=== PATIENT | male | born 1950 | race Caucasian/White ===

== ENCOUNTER 2019-10-01 09:11 | Outpatient (CLI) | payer MEDICARE, SELFPAY ==
--- NOTE | ~2019-10-01 | XR_ITS ---
EXAMINATION: XR lumbar spine min 4V DATE: 10/01/2019 09:41 INDICATION: Lumbar spinal stenosis with neurogenic claudication TECHNIQUE: Anteroposterior and lateral in neutral, flexion and extension views of the lumbar spine we re obtained. COMPARISON: MRI dated 08/22/[address] dated 12/29/2018 FINDINGS: Interval discectomy with prosthetic disc device at L4-L5. Posterior spinal fusion with bilateral vert ical rods and pedicle screw fixations at L4-L5 which is also new since the prior study. Unchanged int erspinous process fixation device at L5-S1. 5 mm retrolisthesis L2 on L3 which is unchanged with fle xion and extension. Severe disc height loss at this level with vacuum phenomena and sclerotic Modic t ype III degenerative endplate changes. Chronic mild anterior wedging of T12 and L1. Multiple prominen t anterior osteophytes which appear solidly bridging at T10-L2. IMPRESSION: 1. Severe lumbar spondylosis with 5 mm retrolisthesis L2 on L3 which is unchanged with flexion or ext ension. 2. Stable appearance of prior lumbar postoperative changes including posterior fusion procedure at th e spinous processes of L5-S1 and prosthetic disc and instrumented posterior spinal fusion at L4-L5. Reviewed, dictated and finalized at location A. IMPRESSION: 1. Severe lumbar spondylosis with 5 mm retrolisthesis L2 on L3 which is unchang ed with flexion or extension. 2. Stable appearance of prior lumbar postoperative changes including posterior fusion procedure at the spinous processes of L5-S1 and prosthetic disc and inst rumented posterior spinal fusion at L4-L5.
== END 2019-10-01 09:12 | disposition home or self-care (01) ==
PROVIDERS: PCP Family Medicine
DX: M48.062 Spinal stenosis, lumbar region with neurogenic claudication (principal); M47.816 Spondylosis without myelopathy or radiculopathy, lumbar region; M43.16 Spondylolisthesis, lumbar region; Z98.1 Arthrodesis status
CPT/HCPCS: 72110

== ENCOUNTER 2019-10-26 09:41 | Outpatient (CLI) | payer MEDICARE, SELFPAY ==
--- NOTE | ~2019-10-26 | CT_ITS ---
EXAMINATION: CT lumbar spine wo con DATE: 10/26/2019 10:12 INDICATION: Low back pain. TECHNIQUE: Computed tomography (CT) of the lumbar spine was performed without intravenous contrast. A utomated exposure control and iterative reconstruction technique were employed. The dose-length produ ct was 1028.78 mGy-cm. COMPARISON: Lumbar spine radiographs 10/01/2019, MRI 08/22/2017 FINDINGS: There is 3 degrees dextrocurvature of lumbar spine. There are hypoplastic ribs at L1. There is 5 mm retrolisthesis of L2 on L3. There are changes of anterior and posterior fusion procedures at L4-L5 with interbody device and pedicle screws. There is internal fixation of the spinous processes at L5-S1. There are bridging anterior osteophytes from L1 to at least T11, consistent with diffuse he patic skeletal hyperostosis (DISH). There is severely decreased disc height at L2-L3. The prostate is moderately enlarged. The following disc levels are specifically discussed: L1-L2: The disc does not extend beyond the endplate margin. There is moderate bilateral facet joint o steoarthritis. There is no neural foraminal stenosis. There is no central canal stenosis. L2-L3: The disc is bulging. There is moderate bilateral facet joint osteoarthritis. There is moderate bilateral neural foraminal stenosis. There is moderate central canal stenosis. L3-L4: The disc is bulging. There is severe bilateral facet joint osteoarthritis. There is mild bilat eral neural foraminal stenosis. There is mild central canal stenosis. L4-L5: The disc is bulging. There is severe bilateral facet joint osteoarthritis. There is moderate b ilateral neural foraminal stenosis. There is mild central canal stenosis. L5-S1: There is severe bilateral facet joint osteoarthritis. There is moderate bilateral neural joon inal stenosis. There is moderate central canal stenosis. IMPRESSION: 1. Severe lumbar spondylosis. 2. Anterior fusion procedure at L4-L5 and posterior fusion procedures at L4-L5 and L5-S1. 3. DISH. Reviewed, dictated and finalized at location A.
== END 2019-10-26 09:42 | disposition home or self-care (01) ==
LOC: ANHIMG 09:44
PROVIDERS: PCP Family Medicine; Visit Provider Nurse Practitioner Gerontology
DX: M48.062 Spinal stenosis, lumbar region with neurogenic claudication (principal); M43.16 Spondylolisthesis, lumbar region; M54.41 Lumbago with sciatica, right side; G89.29 Other chronic pain; M54.42 Lumbago with sciatica, left side; Z98.1 Arthrodesis status; M48.16 Ankylosing hyperostosis [Forestier], lumbar region
CPT/HCPCS: 72131

== ENCOUNTER 2021-09-24 00:11 | Day surgery (SDC) | payer MEDICARE, SELFPAY ==
[2021-09-05 12:50] VITALS: BMI 26.2
[2021-09-24 08:16] VITALS: BP 135/87; PULSE 80; RESP 18; TEMP 36.4; O2SAT 99
[2021-09-24] MEDS: LACTATED RINGERS 1,000 ML 150 ML IV CONT (08:27)
--- NOTE | 2021-09-24 09:00 | P.CONGI_ITS ---
Assessment and Plan Assessment and plan (1) Family history of colon cancer in father: Code(s): Z80.0 - Family history of malignant neoplasm of digestive organs Status: Acute Assessment and Plan: Patient's father grandfather had colon cancer. For this reason surveillance colonoscopy at 5 year intervals is advised. Further recommendations will be given after colonoscopy. GI Consult Note Consult date/time: 09/24/21 09:00 HPI: Pino Saunders is a 70 year old male Presents for screening colonoscopy. Patient's current weight appetite and bowel movements are normal. He denies abdominal pain. He has had no bleeding. Family history is significant both father and grandfather have had colon cancer. Most recent colonoscopy for this patient 2016 was unremarkable. Patient presents today for neoplasia screening. Review of Systems Review of Systems: All systems reviewed & are unremarkable except as noted in HPI and below PMFSH Past Medical History Medical History (Updated 09/24/21 @ 09:02 by Bossman Carrera MD) Diverticulitis Hepatitis C antibody test negative (06/25/17) Surgical History Surgical History H/O rotator cuff surgery 4--2006 History of back surgery 2007,2018 History of bilateral carpal tunnel release 2002 Family History Family History Grandparent Hypertension Family history of elevated blood lipids Father Carcinoma of colon Sibling Family history of malignant neoplasm of breast in first degree relative Other Family history of malignant neoplasm of breast Social History Social History Smoking status: Former smoker Tobacco type: cigarettes Smoking end date: 05/18/85 Alcohol intake: current Meds Home Medications and Allergies Home Medications Medication Instructions Recorded Confirmed Type multivitamin 1 tablet PO DAILY 08/28/20 09/24/21 History rosuvastatin 10 mg tablet See Rx Instructions .ROUTE 04/04/21 09/24/21 Rx .COMPLEX #90 tablet diclofenac sodium 75 mg See Rx Instructions .ROUTE 05/02/21 09/24/21 Rx tablet,delayed release .COMPLEX #60 tablet tramadol [Ultram] 50 mg PO Q4-6H 09/05/21 09/24/21 History Allergies Allergy/AdvReac Type Severity Reaction Status Date / Time No Known Allergies Allergy Verified 09/24/21 08:14 Vital Signs Vital Signs - 24 hr 09/24/21 08:16 Temperature 97.5 F L Pulse Rate 80 Respiratory Rate 18 Blood Pressure 135/87 Pulse Oximetry 99 Exam Narrative: Physical exam reveals patient to be alert. Vital signs stable. HEENT exam is unremarkable. Patient is anicteric. Lungs are clear to auscultation and percussion. Heart is without murmur or extra sounds. Abdominal exam bowel sounds are present soft nontender with no organomegaly. Digital external rectal exam is normal.
--- NOTE | 2021-09-24 09:05 | WPDANESEPPF ---
Anes - Initial Pre Proc Eval Procedure: Operation Date: 09/24/21 09:30 Proposed Procedures p Screening Colonoscopy - Bossman Carrera MD Date/Time: 09/24/21 09:05 Surgeon: Bossman Carrera MD Pre Op Diagnosis: family hx of colon ca Patient Data Age: 70 Gender: M Height: 1.7 m Weight: 76.2 kg Last Vital Signs Temp 97.5 F L 09/24/21 08:16 Pulse 80 09/24/21 08:16 Resp 18 09/24/21 08:16 BP 135/87 09/24/21 08:16 Pulse Ox 99 09/24/21 08:16 Allergies Allergy/AdvReac Type Severity Reaction Status Date / Time No Known Allergies Allergy Verified 09/24/21 08:14 Home Medications Medication Instructions Recorded Confirmed Type multivitamin 1 tablet PO DAILY 08/28/20 09/24/21 History rosuvastatin 10 mg tablet See Rx Instructions .ROUTE 04/04/21 09/24/21 Rx .COMPLEX #90 tablet diclofenac sodium 75 mg See Rx Instructions .ROUTE 05/02/21 09/24/21 Rx tablet,delayed release .COMPLEX #60 tablet tramadol [Ultram] 50 mg PO Q4-6H 09/05/21 09/24/21 History Patient hx anesthesia problems: none Family hx anesthesia problems: none Results Review: All pre-operative results and documents have been reviewed as part of the pre-operative evaluation. FOR[facility]LY [facility], LAT[facility] Past Medical History Medical History (Updated 09/24/21 @ 09:02 by Bossman Carrera MD) Diverticulitis Hepatitis C antibody test negative (06/25/17) Surgical History Surgical History H/O rotator cuff surgery - History of back surgery 2007,2018 History of bilateral carpal tunnel release 2002 Family History Family History Grandparent Hypertension Family history of elevated blood lipids Father Carcinoma of colon Sibling Family history of malignant neoplasm of breast in first degree relative Other Family history of malignant neoplasm of breast Social History Social History Smoking status: Former smoker Tobacco type: cigarettes Smoking end date: 05/18/85 Alcohol intake: current Anes - Eval Final PreProcedure Day of Procedure 09/24/21 09:05 Patient weight: normal Heart: regular rate and rhythm Lungs: clear to auscultation Airway: Mallampati scale class II Neurological: alert and oriented Last oral intake: >/= 8 hours ASA classification: II Emergent: no Anesthetic plan: proceed Anesthesia type and monitoring: general GIVS and standard monitoring Results Review: All pre-operative results and documents have been reviewed as part of the pre-operative evaluation. Informed Consent: The patient's anesthetic plan and its attendant risks and benefits were discussed with the patient/family/POA. Questions were solicited and answers provided to the satisfaction of the patient/family/POA.
[2021-09-24] MEDS: SIMETHICONE ORAL SUSPENSION 20 MG/0.3 ML 30 ML BOTTLE 0.6 ML IRRIGATION (09:20)
[2021-09-24 09:29] VITALS: BP 105/66; PULSE 70; RESP 21; O2SAT 100
[2021-09-24 09:39] VITALS: BP 114/72; PULSE 72; RESP 15; O2SAT 100
[2021-09-24 09:49] VITALS: BP 131/82; PULSE 73; RESP 19; O2SAT 100
== END 2021-09-24 09:56 | disposition home or self-care (01) ==
PROVIDERS: PCP Family Medicine; Visit Provider Internal Medicine Gastroenterology
PROC: 0DJD8ZZ Inspection of Lower Intestinal Tract, Via Natural or Artificial Opening Endoscopic (ICD-10-PCS; CPT 45378; principal; 2021-09-24 09:30)
DX: Z12.11 Encounter for screening for malignant neoplasm of colon (principal); Z80.0 Family history of malignant neoplasm of digestive organs; K57.30 Diverticulosis of large intestine without perforation or abscess without bleeding; K64.8 Other hemorrhoids; Z87.891 Personal history of nicotine dependence
CPT/HCPCS: G0105; J2704; J7120

== ENCOUNTER 2023-04-01 06:39 | Outpatient (CLI) | payer MEDICARE, SELFPAY ==
--- NOTE | ~2023-04-01 | CT_ITS ---
CT of the Abdomen and Pelvis: Indication: Abdominal pain Technique: 2.5 mm axial scans were obtained through the abdomen and pelvis following intravenous adm inistration of 100 cc of Omnipaque 350. Dose reduction technique was used on this scan by utilizing a utomated exposure control and iterative reconstruction technique. The dose-length product (DLP) was 4 79.64 mGy-cm. COMPARISON: 12/29/2018 Findings: Scans through the lung bases are unremarkable. Small hepatic cysts are present. The spleen, pancreas, gallbladder, left adrenal gland, and kidneys a re within normal limits. 1.5 cm right adrenal nodule is indeterminate by Hounsfield units, but is sta ble from prior exam. There are atherosclerotic calcifications of the aorta. No lymphadenopathy. No bowel obstruction or bowel wall thickening. There is sigmoid diverticulosis. Images through the pelvis were performed. Urinary bladder unremarkable. Prostate gland is enlarged. N o ascites. Impression: No acute abnormality. 1.5 cm right adrenal nodule, stable since 2018, therefore most consistent with a benign lesion. Enlarged prostate gland. Reviewed, dictated and finalized at location . [employer] Impression: No acute abnormality. 1.5 cm right adrenal nodule, stable since 2018, therefore most consistent with a benign lesion. Enlarged prostate gland.
== END 2023-04-01 06:40 | disposition home or self-care (01) ==
PROVIDERS: PCP Family Medicine; Visit Provider Internal Medicine Gastroenterology
DX: N40.0 Benign prostatic hyperplasia without lower urinary tract symptoms (principal); K57.92 Diverticulitis of intestine, part unspecified, without perforation or abscess without bleeding; E27.9 Disorder of adrenal gland, unspecified
CPT/HCPCS: 74177; Q9967

== ENCOUNTER 2023-04-16 00:50 | Day surgery (SDC) | payer MEDICARE, SELFPAY ==
[2023-03-30 13:25] VITALS: BMI 26.7
--- NOTE | 2023-04-14 12:20 | SUR.PREOP ---
Patient called regarding upcoming procedure. Reviewed preop instructions, appointment times, and procedure prep.
[2023-04-16 06:22] VITALS: BP 143/81; PULSE 87; RESP 18; TEMP 36.3; O2SAT 100; BMI 26.3
[2023-04-16] MEDS: LACTATED RINGERS 1,000 ML 150 ML IV CONT (06:45)
--- NOTE | 2023-04-16 07:24 | WPDANESEPPF ---
Anes - Initial Pre Proc Eval Procedure: Operation Date: 04/16/23 07:30 Proposed Procedures p Esophagogastroduodenoscopy & Colonoscopy - Bossman Carrera MD Date/Time: 04/16/23 07:24 Surgeon: Bossman Carrera MD Pre Op Diagnosis: abdominal pain,nausea,diverticulitis, Patient Data Age: 72 Gender: M Height: 1.7 m Weight: 76.2 kg Last Vital Signs Temp 97.4 F L 04/16/23 06:22 Pulse 87 04/16/23 06:22 Resp 18 04/16/23 06:22 BP 143/81 H 04/16/23 06:22 Pulse Ox 100 04/16/23 06:22 O2 Del Method Room Air 04/16/23 06:22 Allergies Allergy/AdvReac Type Severity Reaction Status Date / Time No Known Allergies Allergy Verified 03/30/23 13:23 Home Medications Medication Instructions Recorded Confirmed Type vitamins A,C,U-zrol-frcokt 4,296 1 cap PO BID 02/03/22 03/30/23 History mcg-226 mg-90 mg capsule (PreserVision AREDS) tramadol 50 mg tablet 50 mg PO Q4-6H PRN pain #30 tabs 10/20/22 03/30/23 Rx diclofenac sodium 75 mg 75 mg PO BID PRN pain #180 tabs 02/06/23 03/30/23 Rx tablet,delayed release gabapentin 300 mg capsule 600 mg PO DAILY 03/25/23 03/30/23 History omeprazole 20 mg capsule,delayed 20 mg PO DAILY #30 caps 03/25/23 03/30/23 Rx release rosuvastatin 10 mg tablet 10 mg PO DAILY #90 tabs 03/30/23 03/30/23 Rx Patient hx anesthesia problems: none Family hx anesthesia problems: none Results Review: All pre-operative results and documents have been reviewed as part of the pre-operative evaluation. FORMERLY [facility] Past Medical History Medical History Cataract, bilateral Diverticulitis Hepatitis C antibody test negative (06/25/17) Surgical History Surgical History H/O rotator cuff surgery 4--2006 History of back surgery 2007,2018, 2020 History of bilateral carpal tunnel release 2002 Family History Family History Grandparent Hypertension Family history of elevated blood lipids Father Carcinoma of colon Sibling Family history of malignant neoplasm of breast in first degree relative Other Family history of malignant neoplasm of breast Social History Social History (Updated 03/27/23 @ 09:32 by Naya Salvador) Smoking packs per day: 1 Smoking cigarettes per day: 20.0 Years smoked: 15 Smoking pack-years: 15.00 Smoking status: Former smoker Tobacco type: cigarettes Smoking end date: 05/18/85 Alcohol intake: current Drinks per week: 2 Substance use: never Substance use type: does not use Lack of Transportation: No Lack of Food: Never True Current Housing: I Have Housing Concerned About Future Housing: No Difficulty Paying Gas/Electric Bills: No Difficulty Paying for Meds: No Currently Unemployed: No Education: Master's Degree or Higher Difficulty w/ Childcare or Family Care: No Living arrangements: other Additional living arrangements comments: with sp Occupation/Education: retired Gender identity (if verbalized by the patient): Male Agree to blood products: Yes Anes - Eval Final PreProcedure Day of Procedure 04/16/23 07:24 Patient weight: normal Heart: regular rate and rhythm Lungs: clear to auscultation Airway: Mallampati scale class II Neurological: alert and oriented Last oral intake: >/= 8 hours ASA classification: II Emergent: no Anesthetic plan: proceed Anesthesia type and monitoring: general GIVS and standard monitoring Results Review: All pre-operative results and documents have been reviewed as part of the pre-operative evaluation. Informed Consent: The patient's anesthetic plan and its attendant risks and benefits were discussed with the patient/family/POA. Questions were solicited and answers provided to the satisfaction of the patient/family/POA.
--- NOTE | 2023-04-16 07:32 | WPDHPUPDATE1 ---
History and Physical Update Update Date/Time: 04/16/23 07:32 History and Physical has been reviewed, including an updated exam of the patient. There are NO changes in the patient's condition. Risks, benefits, and alternatives have been discussed and questions answered. Patient agrees to proceed with procedure.
--- NOTE | 2023-04-16 07:45 | SUR.OPER ---
egd ended at 738and colonoscopy begun at 743
[2023-04-16 07:56] VITALS: BP 102/67; PULSE 69; RESP 22; O2SAT 100
[2023-04-16 08:06] VITALS: BP 110/66; PULSE 70; RESP 16; O2SAT 100
[2023-04-16 08:16] VITALS: BP 138/81; PULSE 75; RESP 18; O2SAT 100
== END 2023-04-16 08:25 | disposition home or self-care (01) ==
PROVIDERS: PCP Family Medicine; Visit Provider Internal Medicine Gastroenterology
PROC: 0DJ08ZZ Inspection of Upper Intestinal Tract, Via Natural or Artificial Opening Endoscopic (ICD-10-PCS; CPT 43235; principal; 2023-04-16 07:30)
DX: K57.30 Diverticulosis of large intestine without perforation or abscess without bleeding (principal); K64.8 Other hemorrhoids; Z98.890 Other specified postprocedural states; Z87.891 Personal history of nicotine dependence; Z80.0 Family history of malignant neoplasm of digestive organs; Z80.3 Family history of malignant neoplasm of breast
CPT/HCPCS: 43239; 45378; 87081; J2704; J7120

== ENCOUNTER 2023-05-04 13:34 | Emergency (ER) | payer MEDICARE, SELFPAY ==
[2023-05-04 14:10] VITALS: BP 135/82; PULSE 87; RESP 18; TEMP 36.3; O2SAT 98
--- NOTE | 2023-05-04 16:48 | PC.NURSE ---
Pt to intake desk and states that they will be going somewhere else because there were tired of waiting. This RN told her that he should be going back soon. They did not want to wait. Pt ambulated to the exit with a steady gait
== END 2023-05-04 16:51 | disposition left against medical advice (07) ==
LOC: ANHED 16:46
PROVIDERS: PCP Family Medicine
DX: Z53.21 Procedure and treatment not carried out due to patient leaving prior to being seen by health care provider (principal)
CPT/HCPCS: 99199

== ENCOUNTER → 2023-05-05 11:12 | Outpatient (CLI) | payer MEDICARE, SELFPAY ==
--- NOTE | ~2023-05-05 | CT_ITS ---
EXAMINATION: CT brain wo con DATE: 05/05/2023 11:23 INDICATION: Persistent headaches post fall with head injury 6 days prior TECHNIQUE: Computed tomography (CT) of the head was performed without intravenous contrast. Sagittal and coronal reconstructions were performed. The mA was adjusted according to patient size. Iterative reconstruction technique was employed. The dose-length product was 645.69 mGy-cm. COMPARISON: None FINDINGS: No fracture. Acute intracranial hemorrhage, acute infarction or abnormal extra axial fluid collection . There is mild scattered white matter hypoattenuation consistent with chronic small vessel ischemic disease. Symmetric prominence of the sulci consistent with mild age-appropriate diffuse cerebral volu me loss. Ventricles are normal and symmetric. No mass/mass effect. Changes of bilateral intraocular l ens replacement. The orbits and mastoid air cells are normal. Mild mucosal thickening and small mucou s retention cyst in the bilateral maxillary sinuses. Intracranial calcified cerebral atherosclerosis is noted. IMPRESSION: 1. No fracture or acute intracranial process. 2. Age-related changes including mild diffuse volume loss and mild scattered white matter hypoattenua tion consistent with chronic small vessel ischemic disease. Reviewed, dictated and finalized at location A. [employer] MACHINE OPERATOR IMPRESSION: 1. No fracture or acute intracranial process. 2. Age-related changes including mild diffuse volume loss and mild scattered wh ite matter hypoattenuation consistent with chronic small vessel ischemic diseas e.
== END ==
PROVIDERS: PCP Family Medicine; Visit Provider Family Medicine
DX: R51.9 Headache, unspecified (principal); S09.93XA Unspecified injury of face, initial encounter
CPT/HCPCS: 70450

== ENCOUNTER 2025-01-02 12:03 | Outpatient (CLI) | payer MEDICARE, SELFPAY ==
--- NOTE | ~2025-01-02 | XR_ITS ---
EXAM/ PROCEDURE: XR knee RT min 4V - 01/02/2025 12:20 CDT HISTORY: 74 years old Male with M25.561 - Pain in right knee, pain x 2 weeks COMPARISON: None available TECHNIQUE: Three view(s) FINDINGS/ IMPRESSION: There are no fractures or dislocations.Joint space narrowing, subchondral sclerosis, subchondral cyst formation and osteophyte formation, compatible with mild osteoarthritis. Reviewed, dictated and finalized at location A.
== END 2025-01-02 12:04 | disposition home or self-care (01) ==
PROVIDERS: PCP Family Medicine; Visit Provider Family Medicine
DX: M25.561 Pain in right knee (principal); M25.461 Effusion, right knee
CPT/HCPCS: 73564

== ENCOUNTER 2025-02-17 09:13 | Outpatient (CLI) | payer MEDICARE, SELFPAY ==
--- NOTE | 2025-02-17 09:20 | ECG_ITS ---
Test Date: 2025-02-17 09:24:00 Measurements Intervals [place] Rate: 77 P: -10 [place]: 167 QRS: 53 QRSD: 82 T: 60 QT: 381 QTc: 431 Interpretive Statements SINUS RHYTHM BASELINE ARTIFACT- I, II, III, V1 NORMAL ECG No previous ECG available for comparison Electronically Signed On 02-17-2025 09:45:43 CDT by Parvez Lee D.O.
--- OUTSIDE RECORDS SUMMARY | 2025-02-17 09:22 | XMS_ITS | Encounter Summary ---
Author Organization [facility] Healthcare Address [address] [place] [address] Care Team Providers Care Photographer Motion Picture Name Role Phone Amrita Lisa DO Primary Care Provider [phone] Marco Martinez LENS CUTTER Unavailable [phone] Reason for Visit * Reason Onset Date Comments Scheduling Appointments 10/04/2021 Encounter Details Date Type Department Care Team (Late st Contact Info) Description 10/04/[address] [facility] [place] [facility] [address] [facility] [address] [place] [address] Marco Workman MD [address] [facility] [id number] [place], [place] [id number] Scheduling Appointments Social History Tobacco Use Types Packs/Day Years Used Date Smoking Tobacco: Former Cigarettes 1 18 1 968 - 1986 Smokeless Tobacco: Former Alcohol Use Standard Drinks/Week Comments Yes 20 (1 standard drink = 0.6 oz pu re alcohol) 10/week AUDIT-C Answer Date Recorded Q1: How often do you have a drink containing alc ohol? Never 10/02/2021 Q2: How many drinks containi ng alcohol do you have on a typical day when you are drinking? 1 or 2 10/02/2021 Q3: How often do you have six or more drinks on one occasion? Never 10/02/2021 Sex and Gender Information Value Date Recorded Sex Assigned at Not on file Legal Sex Male 7:47 PM CISO Gender Identity Not on file Sexual Orientation Straight 01/08/2021 10 :50 AM CDT Occupation Industry Job Start Date Job End Date retired Not on file Not on file Not on file documented as of this encounter Plan of Treatment Not on file documented as of this encounter Goals Goal Patient Goal Type Associated Problems Recent Progress Patient-Stated? Author CCM Chronic Pain Care Plan Chronic Care Management Worsening( 7:29 AM CDT) Ligia Beebe, RN Note: Problem: Chronic Pain Goals: 1. Minimize further functional decline 2. Maximize quality of life 3. Control pain Strategies: - Activity/exercise program recommendation - Conservative stepwise pain medicine strategy with multi-disciplinary approach - Recommend healthy lifestyle strategies and compensatory methods as needed documented as of this encounter Visit Diagnoses Not on filedocumented in this encounter Care Teams Photographer Motion Picture Relationship Specialty Start Date End Date Amrita Lsia DO PCP - General Family Medicine 11/28/20 Marco Martinez, LENS CUTTER [address] [facility] [address] [place], [place] [id number] Hydrometeorology Teacher Physical Therapy 01/16/21 documented as of this encounter
--- OUTSIDE RECORDS SUMMARY | 2025-02-17 09:22 | XMS_ITS | Clinical Summary ---
Author Organization [facility] [employer] Address [address] [place] [address] Care Team Providers Care Sales Incentive Analyst Name Role Phone Cholo De Souza MD Primary Care Provider [phone] Source Comments [facility],non-owned Affiliates and Associated Physician Practices is amultiple site organization consisting of ambulatory clinics and hospital sitesin [place], [place], [place] and [place]. This disclosure is being madepursuant to the Care Everywhere program and may not contain all information available regarding this patient. Last updated 18.[facility] [employer] Allergies No known active allergies Medications * Be aware that medications may not be up to date on this document. Alwaysverify current medications with the patient. diclofenac sodium EC (VOLTAREN) 75 MG tablet Take 75 mg by mouth 2 times daily. 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 Gender Identity Not on file Sexual Orientation Not on file Occupation Industry Job Start Date Job End Date RETIRED Not on file Not on file Not on file Last Filed Vital Signs Vital Sign Reading Time Taken Comments Blood Pressure - - Pulse - - Temperature - - Respiratory Rate - - Oxygen Saturation - - Inhaled Oxygen Concentration - - Weight 80.3 kg (177 lb) 11/14/2013 11:03 AM CDT Height 170.2 cm (5' 7) 11/14/2013 11:03 AM CDT Body Mass Index 27.72 11/14/2013 11:03 AM CDT Plan of Treatment Health Maintenance Due Date Last Done Comments COLOGUARD (AGES 45-75) - COL ON CA SCREENING 1949 COLON MONITORING 1949 COLONOSCOPY - COLON CA SCREENING 1949 CT COLONOGRAPHY - COLON CA SCREENING 1949 Colorectal Cancer Screening 1949 FIT - COLON CA SCREENING 1949 FLEX SIG - COLON CA SCREENING 1949 LIPID TESTING 1949 HEPATITIS C SCREENING 11/16/1967 DTAP/TDAP/TD VACCINES (1 - Tdap) 1968 PNEUMOCOCCAL VACCINE 50+ (1 of 1 - PCV) 11/21/1999 ZOSTER VACCINE (1 of 2) 11/21/1999 DEPRESSION SCREENING 05/18/2024 Respiratory Syncytial Virus (RSV) Vaccine Pt: or over 60 yrs (1 - 1-dose 75+ series) 2024 COVID-19 VACCINE (1 - 2023-2 5 season) 2025 INFLUENZA VACCINE (#1) 2025 01/30/2021 HEPATITIS B VACCINE Aged Out No longe r eligible based on patient's age to complete this topic HIB VACCINE Aged Out No longer eligi ble based on patient's age to complete this topic HPV VACCINE Aged Out No longer eligi ble based on patient's age to complete this topic MENINGOCOCCAL (Group B) VACC INE SHARED DECISION-MAKING Aged Out No longer eligibl e based on patient's age to complete this topic MENINGOCOCCAL GROUPS A/C/Y/W VACCINE Aged Out No longer eligible b ased on patient's age to complete this topic Insurance [facility] MANAGED MEDICARE [employer]V [employer] Care Teams Sales Incentive Analyst Relationship Specialty Start Date End Date Cholo De Souza MD [address] [place] [id number] PCP - General Family Medicine 11/07/13
--- OUTSIDE RECORDS SUMMARY | 2025-02-17 09:22 | XMS_ITS | Clinical Summary ---
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 Role Phone Amrita Lisa Primary Care Provider [phone] Marco Martinez OYSTER FARMER Unavailable [phone] Allergies No known active allergies Medications rosuvastatin (CRESTOR) 10 mg tabletIndicatio ns:hyperlipidem ia Take 1 tablet (10 mg total) by mouth every morning 1 Active multivitamin tabletIndicatio ns:Vitamin Deficiency Prevention Take 1 tablet by mouth beach lifeguard before breakfast Active traMADoL (ULTRAM) 50 mg tablet TAKE 1 TABLET BY MOUTH EVERY 4 - 6 HOURS NEEDED FOR PAIN 4 Active gabapentin (NEURONTIN) 300 mg capsule Take 1 capsule (300 mg total) by mouth 4 (four) times a day 360 capsule [address] (VOLTAREN) 75 mg EC tablet Take 1 tablet (75 mg total) by mouth 2 (two) times a day 5 Active Active Problems Problem Noted Date Diagnosed Date Spinal stenosis of lumbar re gion with neurogenic claudication 01/02/2023 Cervical radiculopathy 12/24/2020 Spondylolisthesis of lumbar region 06/21/2018 Overview (06/21/2018): Added automatically from request for surgery [id number] Lumbago 03/23/2018 Displacement of lumbar intervertebral disc 03/23 Lumbar spondylosis 12/09/2017 Osseous and subluxation sten osis of intervertebral foramina of lumbar region 12/09/2017 Lumbar radiculopathy 12/09/2017 Lumbar post-laminectomy syndrome 12/09/2017 Encounters Date Type Department Care Team Description 02/04/2025 11:08 AM CDT - 02/04/2025 11:59 PM CDT Hospital Encounter [facility] MRI [facility] [place] [address] Other tear of medial meniscus, current injury, right knee, initial encounter Discharge Disposition: Discharge to home or self care 01/03/2025 12:00 PM CDT Telemedicine [facility] Medicine Neurosurgery [address] [facility] [address] 6[address] [place] [address] Joanne Jimenes NP Lumbar radiculopathy (Primary Dx); Cervical radiculopathy; Lumbar stenosis without neurogenic claudication; S/P lumbar fusion 01/02/2025 1:20 PM CDT - 01/02/2025 11:59 PM CDT Hospital Encounter [facility] [address] [place] [address] Lumbar radiculopathy; Cervical radiculopathy; Lumbar stenosis without neurogenic claudication; S/P lumbar fusion; Spondylolysis of cervical region Discharge Disposition: Discharge to home or self care 11/21/2024 11:15 AM CDT [facility] Medicine Neurosurgery [address] [place] [address] 4 [address] [place] [phone] Joanne Jimenes NP Lumbar stenosis without neurogenic claudication (Primary Dx); Lumbar radiculopathy; Cervical radiculopathy; S/P lumbar fusion; Spondylolysis of cervical region 11/21/2024 10:54 AM CDT - 11/21/2024 11:59 PM CDT Hospital Encounter [id number] [address] [place] [address] [address] [place] [id number] Lumbar radiculopathy; Cervical radiculopathy Discharge Disposition: Discharge to home or self care 11/21/[address] [facility] Medicine Neurosurgery [address] [place] [address] Office Building [address] [place] [phone] Joanne Jimenes, MELA from Last 3 Months Immunizations Immunization Administration Dates Next Due COVID-19 mRNA ([facility]) 0.3 m L (30 mcg) vaccine (12 years and up) 02/10/2023 Influenza, Quad, Adjuvantated, Intramuscular Influenza, Quadrivalent, Hig h Dose, Preservative Free, Intrr 02/10/2023,02/03/2022 Influenza, Quadrivalent, Rec ombinant, Egg Free, Preservative Free, Intramuscular 03/07/2019,03/07/2019 Influenza, Quadrivalent, Spl it, Preservative Free, Intramuscular 02/01/2018,02/01/2018 Influenza, Unspecified 02/16/2020 Surgical History Surgery Date Site/Laterality Comments ROTATOR CUFF REPAIR BACK SURGERY SPINE SURGERY SPINAL FUSION L4-L5 CARPAL TUNNEL RELEASE 05/18/2002 - 05/17/2003 CATARACT EXTRACTION Medical History Medical History Date Comments Arthritis Weakness Numbness and tingling Hyperlipidemia Family History Medical History Relation Name Comments Cancer Father Hypertension Mother Parkinsonism Mother Cancer Sister Heart defect Son Anesthesia problems Neg Hx Malig Hyperthermia Neg Hx Pseudochol deficiency Neg Hx Relation Name Status Comments Father Mother Sister Son Social History Tobacco Use Types Packs/Day Years Used Date Smoking Tobacco: Former Cigarettes 1 18 1 968 - 1985 Passive Smoke Exposure: Past Smokeless Tobacco: Former Chew Quit: 2003 Tobacco Cessation:Counseling Given: No Alcohol Use Standard Drinks/Week Comments Yes 20 (1 standard drink = 0.6 oz pu re alcohol) 10/week AUDIT-C Answer Date Recorded Q1: How often do you have a drink containing alc ohol? 2-4 times a month 02/04/2024 Q2: How many drinks containi ng alcohol do you have on a typical day when you are drinking? 1 or 2 02/04/2024 Q3: How often do you have si x or more drinks on one occasion? Never 02/04/2024 Personal Safety Answer Date Recorded Have you ever been in or are you currently in a harmful physical or emotional relationship or is someone making you feel afraid or unsafe? 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 Gender Identity Not on file Sexual Orientation Straight 01/08/2021 10 :50 AM CDT Occupation Industry Job Start Date Job End Date retired Not on file Not on file Not on file Obstetrics History Last Filed Vital Signs Vital Sign Reading Time Taken Comments Blood Pressure 118/69 10/23/2023 8:24 AM CDT Pulse 93 10/23/2023 8:24 AM CDT Temperature 36.7 C (98.1 F) 10/23/2023 4:37 AM CDT Respiratory Rate 17 10/23/2023 8:24 AM CDT Oxygen Saturation 100% 10/23/2023 8:24 AM CDT Inhaled Oxygen Concentration - - Weight 79.8 kg (176 lb) 11/21/2024 11:31 AM CDT Height 170.2 cm (5' 7) 11/21/2024 11:31 AM CDT Body Mass Index 27.57 11/21/2024 11:31 AM CDT Plan of Treatment Health Maintenance Due Date Last Done Comments Colon Cancer Screening-Colonoscopy 1950 Depression Screening 1950 Hepatitis C Screening 1950 Hepatitis B Screening 11/21/1967 Zoster Vaccine (2 of 3) 07/14/2012 05/19/2012 Abdominal Aortic Aneurysm (A AA) Screen 2014 Well Visit 65+ 2014 DTaP/Tdap/Td Vaccine (2 - Td or Tdap) 05/07/2020 05/07/2010 Fall Risk Assessment 10/22/2024 10/23/2023 Covid-19 Vaccine (2024-2 6 season) 2025 03/07/2024, 02/10/2023, 02/13/2022, Additional history exists Influenza Vaccine (#1) 2025 , 02/10/2023, 02/03/2022, Additional history exists Pneumococcal vaccine 65+ Completed 04/24/2016, 12/2014 Goals Goal Patient Goal Type Associated Problems [...] lifestyle strategies and compensatory methods as needed Medical Devices Implanted Type Area Merchandising Representative Device Identifier Shelf Expiration Date Model / Serial / Lot Globus Medical [id number] Rise-L [id number] 3d Lordotic Spacer Spinal Nonsterile - [id number] Implanted:Qty : 1 on 03/12/2021 by Gus Gaines MD at [facility] Cage N/A: Spine Lumbar [employer] 193.606 / / Medtronic Sofamor Danek [id number] Infuse 14mm 23mm Absorbable Sponge Sterile Water Syringe Needle - S0 - [id number] Implanted:Qty : 1 on 03/12/2021 by Gus Gaines MD at [facility] Other - see comments N/A: Spine Lumbar Medtronic Inc 12/15/2022 [id number] / 0 / [id number] Gl[employer] 1134.001 Creo Spinal Cap Locking Nonsterile Mis - [id number] Implanted:Qty : 2 on 03/12/2021 by Gus Gaines MD at [facility] Screw N/A: Spine Lumbar [employer] 1134.0010 / / Globus Medical 1134.01 Creo Mis 30mm Modular Polyaxial Tulip Head Screw Bone - [id number] Implanted:Qty : 3 on 03/12/2021 by Gus Gaines MD at [facility] Screw N/A: Spine Lumbar [employer] 1134.0100 / / Glob[employer] Medical 1067.4650 Creo 6.5mm 50mm Cannulated Modular Spine Screw Bone - [id number] Implanted:Qty : 2 on 03/12/2021 by Gus Gaines MD at [facility] Screw N/A: Spine Lumbar [employer] 1067.4650 / / Gl[employer] 1067.4750 Creo 7.5mm 50mm Cannulated Modular Spine Screw Bone - [id number] Implanted:Qty : 1 on 03/12/2021 by Gus Gaines MD at [facility] Screw N/A: Spine Lumbar [employer] 1067.4750 / / [employer] 1134.7045 Creo Mis 5.5mm 45mm Curve Mg Spinal Titanium - [id number] Implanted:Qty : 1 on 03/12/2021 by Gus Gaines MD at [facility] Screw N/A: Spine Lumbar [employer] 1134.7045 / / Filler Bone Void Acupac Advanced Frozen 10 - [id number] - [id number] Implanted:Qty : 1 on 08/17/2018 by Gus Gaines MD at [facility] N/A: Spine Lumbar [employer]uity [employer] Inc 04/13/2023 [id number] / [id number] / Gl[employer] 1067.4650 Creo 6.5mm 50mm Cannulated Modular Spine Screw Bone - [id number] Implanted:Qty : 4 on 08/17/2018 by Gus Gaines MD at [facility] N/A: Spine Lumbar [employer] 1067.4650 / / Gl[employer] Medical 685.007 Tc 1.6mm 500mm Blunt Wire Fixation Nitinol - [id number] Implanted:Qty : 4 on 08/17/2018 by Gus Gaines MD at [facility] N/A: Spine Lumbar [employer] 685.007 / / Gl[employer] Medical 1134.01 Creo Mis 30mm Modular Polyaxial Tulip Head Screw Bone - [id number] Implanted:Qty : 4 on 08/17/2018 by Gus Gaines MD at [facility] N/A: Spine Lumbar [employer] 1134.01 / / Gl[employer] 1134.001 Creo Spinal Cap Locking Nonsterile Mis - [id number] Implanted:Qty : 4 on 08/17/2018 by Gus Gaines MD at [facility] N/A: Spine Lumbar [employer] 1134.001 / / Gl[employer] 1134.7045 Creo Mis 5.5mm 45mm Curve Mg Spinal Titanium - [id number] Implanted:Qty : 1 on 08/17/2018 by Gus Gaines MD at [facility] N/A: Spine Lumbar [employer] 1134.7045 / / Gl[employer] Medical [id number] Creo Mis 5.5mm 50mm Curve Mg Spinal Titanium - [id number] Implanted:Qty : 1 on 08/17/2018 by Gus Gaines MD at [facility] N/A: Spine Lumbar [employer] [id number] / / Gl[employer] Medical 1124.1233 Altera [id number] 15d Spacer Spinal - [id number] Implanted:Qty : 1 on 08/17/2018 by Gus Gaines MD at [facility] N/A: Spine Lumbar [employer] 1124.1233 / / Allosource Canpac Nonpurge Frozen Graft 25cc Bone [id number] - [id number] Implanted:Qty : 1 on 10/20/2023 by Gus Gaines MD at [facility] N/A: Spine Lumbar Allosource 08/27/2028 [id number] / / [id number] Gl[employer] 1134.01 Creo Mis 30mm Modular Polyaxial Tulip Head Screw Bone - [id number] Implanted:Qty : 8 on 10/20/2023 by Gus Gaines MD at [facility] N/A: Spine Lumbar [employer] 1134.0100 / / [employer] 1134.001 Creo Spinal Cap Locking Nonsterile Mis - [id number] Implanted:Qty : 8 on 10/20/2023 by Gus Gaines MD at [facility] N/A: Spine Lumbar [employer] 1134.0010 / / [employer] Medical Creo 6.5mm 50mm Cannulated Modular Spine Screw Bone 1067.4650 - [id number] Implanted:Qty : 2 on 10/20/2023 by Gus Gaines MD at [facility] N/A: Spine Lumbar [employer] 1067.4650 / / [employer] 1134.711 Creo Mis 5.5mm 110mm Curve Mg Spinal Titanium - [id number] Implanted:Qty : 1 on 10/20/2023 by Gus Gaines MD at [facility] N/A: Spine Lumbar [employer] 1134.7110 / / [employer] 1134.71 Creo Mis 5.5mm 100mm Curve Mg Spinal Titanium - [id number] Implanted:Qty : 1 on 10/20/2023 by Gus Gaines MD at [facility] N/A: Spine Lumbar [employer] 1134.7100 / / Bioventus Osteoamp Select Fiber 5cc Oasf-05 - [id number] - [id number] Implanted:Qty : 1 on 10/20/2023 by Gus Gaines MD at [facility] N/A: Spine Lumbar BIOVENTUS 07/14/2028 OASF-05 / [id number] / Explanted Type Area Merchandising Representative Device Identifier Shelf Expiration Date Model / Serial / Lot Lytro [id number] Tc Thread Blunt Tip Wire Fixation - [id number] Explanted:Qty: 1 on 03/12/2021 by Gus Gaines MD at [facility] Wire N/A: Spine Lumbar Lytro [id number] / / Procedures Procedure Name Priority Date/Time Associated Diagnosis Comments MRI KNEE RIGHT WO CONTRAST Schedule Routine, Read Routine (OP Routine) 02/04/2025 11:38 AM CDT Other tear of medial meniscus, current injury, right knee, initial encounter MRI SPINE CERVICAL LUMBAR WO CONTRAST Schedule Routine, Read Routine (OP Routine) 01/02/2025 2:17 PM CDT Lumbar radiculopathy Cervical radiculopathy Lumbar stenosis without neurogenic claudication S/P lumbar fusion Spondylolysis of cervical region XR SCOLIOSIS 6 OR MORE VIEWS Schedule Routine, Read Routine (OP Routine) 11/21/2024 11:29 AM CDT Lumbar radiculopathy Cervical radiculopathy from Last 3 Months Results * MRI Knee Right WO Contrast (02/04/2025 11:38 AM CDT) Anatomical Region Laterality Modality Lower Extremities Right Magnetic Reson ance 02/05/2025 11:1 2 AM CDT Narrative 02/05/2025 11:16 AM CDT EXAM DESCRIPTION: MRI KNEE RIGHT WO CONTRAST REASON FOR STUDY: S83.365A Patient reports right knee pain x 4 weeks. No injury TECHNIQUE: Multiplanar, multisequence MRI of the right knee was performed without contrast. COMPARISON: None available FINDINGS: In the medial compartment, there is complex tearing of the meniscal body extending to the posterior horn with small displaced flap fragment. Full-thickness cartilage loss of the central weight-bearing femoral condyle with a subchondral insufficiency fracture and moderate marrow edema. Full-thickness cartilage loss of the peripheral tibial plateau with subchondral cyst formation and mild marrow edema. In the lateral compartment, the meniscus is intact. Mild posterior tibial chondrosis. In the patellofemoral compartment, there is mild chondrosis. The cruciate ligaments are intact. Chronic sprain of the proximal medial collateral ligament noted. The lateral collateral ligament is intact. The extensor mechanism is normal. The popliteus tendon is intact. Moderate-sized knee effusion with mild synovitis. There are no loose bodies. Anterior knee subcutaneous edema. IMPRESSION: 1. Complex tear of the right medial meniscal body extending to the posterior horn with small displaced flap fragment. 2. 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 3. Moderate-sized right knee effusion with synovitis. THIS IS AN ELECTRONICALLY VERIFIED FINAL REPORT 02/05/2025 11:16 AM - Electronically signed by Pino Modi M.D. MF: BRET Report ID: [id number] Reading Location: [id number] Procedure Note Pino Modi MD - 02/05/2025 EXAM DESCRIPTION: MRI KNEE RIGHT WO CONTRAST REASON FOR STUDY: S83.241A Patient reports right knee pain x 4 weeks. No injury TECHNIQUE: Multiplanar, multisequence MRI of the right knee wasperformed without contrast. COMPARISON: None available FINDINGS: In the medial compartment, there is complex tearing of themeniscal body extending to the posterior horn with small displaced flap fragment. Full-thickness cartilage loss of the central weight-bearing femoralcondyle with a subchondral insufficiency fracture and moderate marrow edema. Full-thickness cartilage loss of the peripheral tibial plateau with subchondral cyst formation and mild marrow edema. In the lateral compartment, the meniscus is intact. Mild posterior tibial chondrosis. In the patellofemoral compartment, there is mild chondrosis. The cruciate ligaments are intact. Chronic sprain of the proximal medial collateral ligament noted. The lateral collateral ligament is intact.The extensor mechanism is normal. The popliteus tendon is intact.Moderate-sized knee effusion with mild synovitis. There are no loose bodies. Anteriorknee subcutaneous edema. IMPRESSION: 1. Complex tear of the right medial meniscal body extending to theposterior horn with small displaced flap fragment. 2. 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 3. Moderate-sized right knee effusion with synovitis. THIS IS AN ELECTRONICALLY VERIFIED FINAL REPORT 02/05/2025 11:16 AM - Electronically signed by Pino Modi M.D. MF: BRET Report ID: [id number] Reading Location: [place] [address] us Jeffery Gregory MD IMG MRI PROCEDURES Final Re sult * MRI Spine Cervical and Lumbar WO Contrast (01/02/2025 2:17 PM CDT) Anatomical Region Laterality Modality Spine N/A Magnetic Resonan ce 01/03/2025 10:3 7 AM CDT Impressions 01/03/2025 10:42 AM CDT 1. Severe degenerative changes of the cervical spine with multilevel severe canal and neuroforaminal stenosis from C3-C4 to C5-C6. 2. Postsurgical changes of posterior surgical fusion from L2 to L5 and discectomy and interbody fusion at L2-L3 and L4-L5. Interval posterior decompression at L3-L4 from prior MRI. 3. Severe degenerative changes of the lumbar spine as described above with multilevel moderate to severe neural foraminal stenosis. Moderate spinal canal stenosis at L5-S1. Dictated by: Ronn Huber M.D. The radiology attending physician has personally reviewed this study, and had reviewed and/or edited this written report and agrees with it. Electronically signed by: Ifeanyi Suh M.D, PHD Narrative 01/03/2025 10:42 AM CDT EXAMINATION: 1. Magnetic resonance imaging (MRI) of the cervical spine without contrast 2. Magnetic resonance imaging (MRI) of the lumbar spine without contrast HISTORY: Hand numbness. C6 radiculopathy. Left L5 radiculopathy. Lower extremity DVT status post lumbar fusion. TECHNIQUE: Multiplanar multi-weighted MRI of the cervical spine was performed without intravenous contrast using the standard protocol. Multiplanar multi-weighted MRI of the lumbar spine was performed without intravenous contrast using the standard protocol. COMPARISON: MR lumbar spine 09/19/2023, 01/27/2022 FINDINGS: CERVICAL SPINE: Subtle stepwise anterolisthesis of C3 over C4 and C4 over C5. Grade 1 anterolisthesis of C7 over T1. T1 hypointense, T2 hyperintense focus within the posterior C6 vertebral body with resultant a lipid poor hemangioma. No acute fracture is identified. The craniocervical junction is normal. The visualized portions of the skull base and the posterior fossa are normal. The spinal cord demonstrates normal signal intensity on all sequences. Multilevel degenerative disc disease with height loss, disc bulges, and desiccation. These findings are greatest at C5-C6. There are no annular fissures identified. No soft tissue abnormality is identified. Normal signal voids are present in the vertebral arteries. C2-C3: Left Central disc osteophyte complex. There is moderate right and mild left facet arthropathy. There is no uncovertebral joint disease. There is moderate right and mild left neuroforaminal stenosis. There is no spinal canal stenosis. C3-C4: Disc bulge with superimposed left central disc protrusion deforms the ventral thecal sac and mildly indents the left anterior cord. There is severe bilateral facet arthropathy. There is mild uncovertebral joint disease. There is severe bilateral neuroforaminal stenosis. There is severe spinal canal stenosis. Ligamentum flavum thickening/infolding. C4-C5: Disc bulge with central disc protrusion indents the ventral cord. There is severe left and moderate right facet arthropathy. There is mild left uncovertebral joint disease. There is severe bilateral neuroforaminal stenosis. There is severe spinal canal stenosis. Ligamentum flavum thickening/infolding. C5-C6: Disc bulge with superimposed protrusion indents the ventral cord. There is mild bilateral facet arthropathy. There is moderate to severe bilateral uncovertebral joint disease. There is moderate to severe bilateral neuroforaminal stenosis. There is severe spinal canal stenosis. Ligamentum flavum thickening/infolding. C6-C7: Left central disc osteophyte complex. There is mild bilateral facet arthropathy. There is moderate bilateral uncovertebral joint disease. There is moderate bilateral neuroforaminal stenosis. There is mild spinal canal stenosis. C7-T1: The disk is normal in configuration. There is mild left facet arthropathy. There is no uncovertebral joint disease. There is mild left neuroforaminal stenosis. There is no spinal canal stenosis. LUMBAR SPINE: Post surgical changes of posterior instrumented fusion from L2 to L5 with intervertebral body spacers at L2-L3 and L4-L5. Spinous process history fusion at L5-S1. Artifact from hardware limits evaluation of adjacent structures. Interval changes of laminectomies at L3-L4 from prior MRI. Edema is present within the dorsal soft tissues without definite organized fluid collection. Partial osseous fusion of L2-L3 and L4-L5. Trace retrolisthesis of L2 on L3 and anterolisthesis of L3 on L4. Vertebral bodies demonstrate normal signal intensity on all sequences. There are no compression fractures. The conus medullaris terminates at the level of T12-L1. The distal spinal cord signal intensity is normal. Moderate to advanced disc height loss at L3-L4. There are no annular fissures identified. Limited views of the abdomen and pelvis show no soft tissue abnormality. The aorta is normal. L1-L2: The disc is normal in configuration. There is [id number] bilateral facet arthropathy. There is mild bilateral neuroforaminal stenosis. There is no spinal canal stenosis. L2-L3: Prior discectomy. There is severe bilateral facet arthropathy. There is moderate to severe bilateral neuroforaminal stenosis. There is no spinal canal stenosis. Ligamentous thickening. L3-L4: Disc bulge. There is severe bilateral facet arthropathy. There is [id number] bilateral neuroforaminal stenosis. There is no spinal canal stenosis. L4-L5: Prior discectomy. There is severe bilateral facet arthropathy. There is moderate to severe bilateral neuroforaminal stenosis. There is mild spinal canal stenosis. L5-S1: Disc bulge. There is severe bilateral facet arthropathy. There is moderate bilateral neuroforaminal stenosis. There is moderate spinal canal stenosis. Procedure Note Ifeanyi Suh MD PhD - 01/03/2025 EXAMINATION: 1. Magnetic resonance imaging (MRI) of the cervical spine without contrast 2. Magnetic resonance imaging (MRI) of the lumbar spine without contrast HISTORY: Hand numbness. C6 radiculopathy. Left L5 radiculopathy. Lower extremity DVT status post lumbar fusion. TECHNIQUE: Multiplanar multi-weighted MRI of the cervical spine was performed without intravenous contrast using the standard protocol. Multiplanar multi-weighted MRI of the lumbar spine was performed without intravenous contrast using the standard protocol. COMPARISON: MR lumbar spine 09/19/2023, 01/27/2022 FINDINGS: CERVICAL SPINE: Subtle stepwise anterolisthesis of C3 over C4 and C4 over C5. Grade 1 anterolisthesis of C7 over T1. T1 hypointense, T2 hyperintense focus within the posterior C6 vertebral body with resultant a lipid poor hemangioma. No acute fracture is identified. The craniocervical junction is normal. The visualized portions of the skull base and the posterior fossa are normal. The spinal cord demonstrates normal signal intensity on all sequences. Multilevel degenerative disc disease with height loss, disc bulges, and desiccation. These findings are greatest at C5-C6. There are no annular fissures identified. No soft tissue abnormality is identified. Normal signal voids are present in the vertebral arteries. C2-C3: Left Central disc osteophyte complex. There is moderate right and mild left facet arthropathy. There is no uncovertebral joint disease. There is moderate right and mild left neuroforaminal stenosis. There is no spinal canal stenosis. C3-C4: Disc bulge with superimposed left central disc protrusion deforms the ventral thecal sac and mildly indents the left anterior cord. There is severe bilateral facet arthropathy. There is mild uncovertebral joint disease. There is severe bilateral neuroforaminal stenosis. There is severe spinal canal stenosis. Ligamentum flavum thickening/infolding. C4-C5: Disc bulge with central disc protrusion indents the ventral cord. There is severe left and moderate right facet arthropathy. There is mild left uncovertebral joint disease. There is severe bilateral neuroforaminal stenosis. There is severe spinal canal stenosis. Ligamentum flavum thickening/infolding. C5-C6: Disc bulge with superimposed protrusion indents the ventral cord. There is mild bilateral facet arthropathy. There is moderate to severe bilateral uncovertebral joint disease. There is moderate to severe bilateral neuroforaminal stenosis. There is severe spinal canal stenosis. Ligamentum flavum thickening/infolding. C6-C7: Left central disc osteophyte complex. There is mild bilateral facet arthropathy. There is moderate bilateral uncovertebral joint disease. There is moderate bilateral neuroforaminal stenosis. There is mild spinal canal stenosis. C7-T1: The disk is normal in configuration. There is mild left facet arthropathy. There is no uncovertebral joint disease. There is mild left neuroforaminal stenosis. There is no spinal canal stenosis. LUMBAR SPINE: Post surgical changes of posterior instrumented fusion from L2 to L5 with intervertebral body spacers at L2-L3 and L4-L5. Spinous process history fusion at L5-S1. Artifact from hardware limits evaluation of adjacent structures. Interval changes of laminectomies at L3-L4 from prior MRI. Edema is present within the dorsal soft tissues without definite organized fluid collection. Partial osseous fusion of L2-L3 and L4-L5. Trace retrolisthesis of L2 on L3 and anterolisthesis of L3 on L4. Vertebral bodies demonstrate normal signal intensity on all sequences. There are no compression fractures. The conus medullaris terminates at the level of T12-L1. The distal spinal cord signal intensity is normal. Moderate to advanced disc height loss at L3-L4. There are no annular fissures identified. Limited views of the abdomen and pelvis show no soft tissue abnormality. The aorta is normal. L1-L2: The disc is normal in configuration. There is oggu-yb-[id number] bilateral facet arthropathy. There is mild bilateral neuroforaminal stenosis. There is no spinal canal stenosis. L2-L3: Prior discectomy. There is severe bilateral facet arthropathy. There is moderate to severe bilateral neuroforaminal stenosis. There is no spinal canal stenosis. Ligamentous thickening. L3-L4: Disc bulge. There is severe bilateral facet arthropathy. There is qsrl-oh-[id number] bilateral neuroforaminal stenosis. There is no spinal canal stenosis. L4-L5: Prior discectomy. There is severe bilateral facet arthropathy. There is moderate to severe bilateral neuroforaminal stenosis. There is mild spinal canal stenosis. L5-S1: Disc bulge. There is severe bilateral facet arthropathy. There is moderate bilateral neuroforaminal stenosis. There is moderate spinal canal stenosis. IMPRESSION: 1. Severe degenerative changes of the cervical spine with multilevel severe canal and neuroforaminal stenosis from C3-C4 to C5-C6. 2. Postsurgical changes of posterior surgical fusion from L2 to L5 and discectomy and interbody fusion at L2-L3 and L4-L5. Interval posterior decompression at L3-L4 from prior MRI. 3. Severe degenerative changes of the lumbar spine as described above with multilevel moderate to severe neural foraminal stenosis. Moderate spinal canal stenosis at L5-S1. Dictated by: Ronn Huber M.D. The radiology attending physician has personally reviewed this study, and had reviewed and/or edited this written report and agrees with it. Electronically signed by: Ifeanyi Suh M.D, PHD Joanne Jimenes NP IMG MRI PROCEDURES Final R esult * XR Scoliosis 6 or More Views (11/21/2024 11:29 AM CDT) Anatomical Region Laterality Modality Spine N/A Computed Radiogr aphy 11/21/2024 2:39 PM CDT Impressions 11/21/2024 2:52 PM CDT 1. No significant scoliosis of the spine. No coronal imbalance or pelvic obliquity. Mild positive sagittal balance. 2. Unchanged posterior spinal fusion from L2 to L5 with interspinous fusion from L5 to S1. Dictated by: Joy Alexander M.D. The radiology attending physician has personally reviewed this study, and had reviewed and/or edited this written report and agrees with it. Electronically signed by: Ismael Olivera M.D. Narrative 11/21/2024 2:52 PM CDT EXAMINATION: XR SCOLIOSIS 6 OR MORE VIEWS HISTORY: Lumbar fusion. Lumbar and cervical radiculopathy. COMPARISON: X-ray lumbar spine 07/21/2024. X-ray scoliosis 03/19/2023. FINDINGS: 4 views of the entire spine are obtained using the EOS system. 4 additional views of the lumbar spine are obtained for interpretation. Images are interpreted with comparison to to x-ray lumbar spine 07/21/2024, x-ray scoliosis on 03/19/2023. There is no significant scoliosis of the spine. There is no significant coronal imbalance or pelvic obliquity. There is mild positive sagittal imbalance. There is no abnormal motion on flexion and extension. Are no acute fractures or evidence of loosening. There is unchanged posterior spinal fusion from L2 to L5 with interspinous fusion from L5 to S1. The lumbar alignment is intact and unchanged. There is mild to moderate degenerative disc disease at the unfused segments. Diffuse idiopathic skeletal hyperostosis is noted. Procedure Note Ismael Olivera MD - 11/21/2024 EXAMINATION: XR SCOLIOSIS 6 OR MORE VIEWS HISTORY: Lumbar fusion. Lumbar and cervical radiculopathy. COMPARISON: X-ray lumbar spine 07/21/2024. X-ray scoliosis 03/19/2023. FINDINGS: 4 views of the entire spine are obtained using the EOS system. 4 additional views of the lumbar spine are obtained for interpretation. Images are interpreted with comparison to to x-ray lumbar spine 07/21/2024, x-ray scoliosis on 03/19/2023. There is no significant scoliosis of the spine. There is no significant coronal imbalance or pelvic obliquity. There is mild positive sagittal imbalance. There is no abnormal motion on flexion and extension. Are no acute fractures or evidence of loosening. There is unchanged posterior spinal fusion from L2 to L5 with interspinous fusion from L5 to S1. The lumbar alignment is intact and unchanged. There is mild to moderate degenerative disc disease at the unfused segments. Diffuse idiopathic skeletal hyperostosis is noted. IMPRESSION: 1. No significant scoliosis of the spine. No coronal imbalance or pelvic obliquity. Mild positive sagittal balance. 2. Unchanged posterior spinal fusion from L2 to L5 with interspinous fusion from L5 to S1. Dictated by: Joy Alexander M.D. The radiology attending physician has personally reviewed this study, and had reviewed and/or edited this written report and agrees with it. Electronically signed by: Ismael Olivera M.D. Joanne Jimenes SENIOR SOURCING MANAGER IMG XR PROCEDURES Final Re sult from Last 3 Months Insurance [employer] MEDICARE ADVANTAGE AET MEDICARE T MEDICARE T MEDICARE Advance Directives For more information, please contact: [phone] * Full Code (Latest Code Status on File) Date Activated Date Inactivated Comments 10/20/2023 11:45 AM 10/23/2023 2:19 PM * Full Code Date Activated Date Inactivated Comments 03/12/2021 3:16 PM 03/13/2021 5:29 PM * Full Code Date Activated Date Inactivated Comments 08/17/2018 4:02 PM 08/18/2018 1:29 PM Care Teams Thermit Welding Machine Operator Relationship Specialty Start Date End Date Amrita Lisa DO PCP - General Family Medicine 11/28/20 Marco Martinez, OYSTER FARMER [address] [address] Real Estate Rep Physical Therapy 01/16/21
--- OUTSIDE RECORDS SUMMARY | 2025-02-17 09:22 | XMS_ITS | Encounter Summary ---
Author Organization [facility] Healthcare Address [address] [place] [address] Care Team Providers Care Capital Project Engineer Name Role Phone Cholo De Souza MD Primary Care Provider [phone] Amrita Lisa DO Primary Care Provider [phone] Marco Martinez PRESS CUTTER Unavailable [phone] Reason for Visit * Reason Onset Date Comments Appointment 01/04/2018 Encounter Details Date Type Department Care Team (Late st Contact Info) Description 01/04/2018 Telephone [facility] [address] [facility] [address] [place] [address] Marco Workman MD [address] [facility] [phone] [place], [place] [id number] Appointment Social History Tobacco Use Types Packs/Day Years Used Date Smoking Tobacco: Never Assessed Sex and Gender Information Value Date Recorded Sex Assigned at Not on file 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 Gender Identity Not on file Sexual Orientation Straight 01/08/2021 10 :50 AM CDT documented as of this encounter Plan of Treatment Not on file documented as of this encounter Visit Diagnoses Not on filedocumented in this encounter Care Teams Capital Project Engineer Relationship Specialty Start Date End Date Cholo De Souza MD [address] [place] [address] PCP - General 09/29/17 11/27/20 Amrita Lisa DO [address] [place] [address] PCP - General Family Medicine 11/28/20 Marco Martinez, PRESS CUTTER [address] [place] [address] Human Resources Representative Physical Therapy 01/16/21 documented as of this encounter
== END 2025-02-17 09:14 | disposition home or self-care (01) ==
LOC: ANHSURGERY 09:16
PROVIDERS: PCP Family Medicine; Visit Provider Orthopaedic Surgery
DX: Z01.818 Encounter for other preprocedural examination (principal); S83.241A Other tear of medial meniscus, current injury, right knee, initial encounter; X58.XXXA Exposure to other specified factors, initial encounter
CPT/HCPCS: 93005

== ENCOUNTER 2025-03-01 03:11 | Day surgery (SDC) | payer MEDICARE, SELFPAY ==
--- NOTE | 2025-02-16 07:03 | P.HP_ITS ---
H&P: HPI History of Present Illness Date/Time: 02/16/25 07:03 Chief Complaint: Patient is knee pain right. He has mechanical catching locking of his knee. He has failed conservative treatment like to consider arthroscopic intervention. Review of Systems Musculoskeletal: Musculoskeletal: Reports arthralgias, Reports joint swelling and Reports stiffness Neurologic: Reports abnormal gait [facility] Past Medical History Medical History Cataract, bilateral Hepatitis C antibody test negative (06/25/17) Diverticulitis Surgical History Surgical History History of bilateral carpal tunnel release 2002 H/O rotator cuff surgery 08-16-2006 History of back surgery 2007,2018, 2020,2023 Family History Family History Grandparent Hypertension Family history of elevated blood lipids Father Carcinoma of colon Sibling Family history of malignant neoplasm of breast in first degree relative Other Family history of malignant neoplasm of breast Social History Social History (Updated 02/14/25 @ 08:22 by Hannah Temple CMA) Smoking packs per day: 1 Smoking cigarettes per day: 20.0 Years smoked: 15 Smoking pack-years: 15.00 Smoking status: Former smoker Tobacco type: cigarettes Smoking end date: 05/18/85 Alcohol intake: current Drinks per week: 2 Substance use: never Substance use type: does not use Current Housing: Decline to Answer Concerned About Future Housing: Decline to Answer Difficulty Paying Gas/Electric Bills: Decline to Answer Difficulty Paying for Meds: Decline to Answer Currently Unemployed: Decline to Answer Education: Decline to Answer Difficulty w/ Childcare or Family Care: Decline to Answer Living arrangements: other Additional living arrangements comments: with sp Occupation/Education: retired Gender identity (if verbalized by the patient): Male Agree to blood products: Yes Meds Home Medications and Allergies Home Medications ?Medication ?Instructions ?Recorded ?Confirmed ?Type vitamins A,C,S-dxqz-jjbtfb 4,296 1 cap PO BID 02/03/22 02/14/25 History mcg-226 mg-90 mg capsule (PreserVision AREDS) gabapentin 300 mg capsule 600 mg PO DAILY 03/25/23 History tramadol 50 mg tablet 50 mg PO Q4-6H PRN pain #30 tabs 04/22/24 02/14/25 Rx rosuvastatin 20 mg tablet See Rx Instructions .Route 0 12/23/24 02/14/25 Rx .COMPLEX #90 tabs diclofenac sodium 75 mg See Rx Instructions .Route 0 01/03/25 02/14/25 Rx tablet,delayed release .COMPLEX #180 tabs Allergies Allergy/AdvReac Type Severity Reaction Status Date / Time No Known Allergies Allergy Verified 02/14/25 07:02 Exam Narrative: On exam he is tender medially has catching locking and pain with any manipulation. Neurologically he is intact. He walks with an antalgic gait. He has pain with any manipulation. Eyes: General: appearance normal, both eyes and all related structures Neck: Neck: supple Resp: Effort & Inspection: normal respiratory effort Cardio: Rate: regular rate Rhythm: regular rhythm Knee X-Ray 01/02/25 Lumbar Spine X-Ray 10/01/19 Assessment and Plan Assessment and plan (1) Acute medial meniscus tear of right knee: Code(s): S83.241A - Other tear of medial meniscus, current injury, right knee, initial encounter Status: Acute Assessment and Plan: Patient is knee pain right. He has catching locking and pain with any manipulat ion. A positive James's sign. He has failed conservative treatment he would like to consider arthroscopic intervention. I discussed the risks, benefits, limitations, and alternatives the patient in detail. Will proceed with arthroscopy of the right knee, partial meniscectomy, and proceed as indicated.
[2025-02-16 09:28] VITALS: BMI 27.3
--- NOTE | 2025-02-16 09:50 | PC.NURSE ---
[facility] has started construction of its new state of the art ER which will open Spring 2026. With this, we anticipate parking may be a challenge for some our surgical patients and families. Parking spaces are limited but are available for all Surgical, obstetrics, and ER patients sharing this lot. If you arrive and find you are having a hard time finding a parking space, please note that we understand the challenges, please drive around the hospital and park near Hospital Entrance 1. When you enter this entrance, you can ask a volunteer to direct or take you back to the surgical waiting area to check in. We appreciate everyone?s understanding of these expected challenges while we build for your future. Report to the Outpatient Waiting Room, entrance under the green pavilion located off [address], at time ___7:00AM__ on date __02/20/25___. Planned Procedure Time: __9:00AM____.? Time changes happen often and if your time is changed the preop area will call you the afternoon before. - You and your visitor will be asked to self-screen and do not enter if you have any COVID symptoms. Please call surgeon if you need to reschedule. - A mask is optional within the hospital at this time. Patients may have clear liquids (water, carbonated beverages, clear teas, apple juice) until 3 hours prior to surgery (6:00AM) with a maximum of 20 ounces. - No food from midnight until time of surgery and no smoking, or chewing tobacco (or any form of nicotine). No chewing gum, candy or mints. Take only the following medications with a SIP of water on the morning of surgery: ____GABAPENTIN AND TRAMADOL NEEDED DO NOT STOP ANY OF YOUR OTHER PRESCRIPTION MEDICATIONS PRIOR TO SURGERY EXCEPT THE FOLLOWING Hold all vitamins and supplements for 3 days per anesthesiologist.-LAST DOSE 02/16/25 Medications to discontinue per physician ___HOLD DICLOFENAC PER DR AMARO Date to take last dose Please no make-up, nail faroese, hairspray, perfume, deodorant, or body powder the day of surgery.? No jewelry (including any body piercings) or valuables the day of surgery, leave them at home.? Please take a shower or bath the night before, or the morning of, surgery with an antibacterial soap.? Wear comfortable, loose fitting clothing.? - Jewelry must be removed prior to entering the operating room.? Rings and piercings that are not removed may be cut off. - The hospital will not accept responsibility for valuables.? - Please leave all valuables, including medications, at home the day of surgery. If you are going home after surgery, a licensed cdl driver must drive you home.? - NO public transportation without another adult if you receive anesthesia. - We recommend that an adult stay with you for 24 hours following discharge. - We also recommend that you do not drive, make important decision, drink alcoholic beverages, or take any drugs that were not prescribed by your health care provider for at least 24 hours after your discharge time. Follow any additional instructions given to you from your surgeon. Telephone instructions given to ___PATIENT and asked if any additional questions and then verbalized understanding. Patient advised to call surgeon office or pre surgery nurse liaison [phone] if any additional questions.
--- NOTE | 2025-02-22 12:14 | PC.NURSE ---
RESCHEDULED FOR INSURANCE REASONS. NO CHANGE IN HEALTH HISTORY PER PATIENT. [facility] has started construction of its new state of the art ER which will open Spring 2026. With this, we anticipate parking may be a challenge for some our surgical patients and families. Parking spaces are limited but are available for all Surgical, obstetrics, and ER patients sharing this lot. If you arrive and find you are having a hard time finding a parking space, please note that we understand the challenges, please drive around the hospital and park near Hospital Entrance 1. When you enter this entrance, you can ask a volunteer to direct or take you back to the surgical waiting area to check in. We appreciate everyone?s understanding of these expected challenges while we build for your future. Report to the Outpatient Waiting Room, entrance under the green pavilion located off [address], at time ___6:00AM____ on date ____03/01/25___. Planned Procedure Time: __7:30AM .? Time changes happen often and if your time is changed the preop area will call you the afternoon before. - You and your visitor will be asked to self-screen and do not enter if you have any COVID symptoms. Please call surgeon if you need to reschedule. - A mask is optional within the hospital at this time. Patients may have clear liquids (water, carbonated beverages, clear teas, apple juice) until 3 hours prior to surgery (4:30AM) with a maximum of 20 ounces. - No food from midnight until time of surgery and no smoking, or chewing tobacco (or any form of nicotine). No chewing gum, candy or mints. Take only the following medications with a SIP of water on the morning of surgery: ____GABAPENTIN AND TRAMADOL NEEDED FOR PAIN DO NOT STOP ANY OF YOUR OTHER PRESCRIPTION MEDICATIONS PRIOR TO SURGERY EXCEPT THE FOLLOWING Hold all vitamins and supplements for 3 days per anesthesiologist. LAST DOSE 02/25/25 Medications to discontinue per physician ____HOLD DICLOFENAC (NSAIDS) PER DR AMARO Date to take last dose Please no make-up, nail turkmen, hairspray, perfume, deodorant, or body powder the day of surgery.? No jewelry (including any body piercings) or valuables the day of surgery, leave them at home.? Please take a shower or bath the night before, or the morning of, surgery with an antibacterial soap.? Wear comfortable, loose fitting clothing.? Children are encouraged to wear pajamas. - Jewelry must be removed prior to entering the operating room.? Rings and piercings that are not removed may be cut off. - The hospital will not accept responsibility for valuables.? - Please leave all valuables, including medications, at home the day of surgery. If you are going home after surgery, a licensed dolly driver must drive you home.? - NO public transportation without another adult if you receive anesthesia. - We recommend that an adult stay with you for 24 hours following discharge. - We also recommend that you do not drive, make important decision, drink alcoholic beverages, or take any drugs that were not prescribed by your health care provider for at least 24 hours after your discharge time. Follow any additional instructions given to you from your surgeon. Telephone instructions given to ____PATIENT and asked if any additional questions and then verbalized understanding. Patient advised to call surgeon office or pre surgery nurse liaison [phone] if any additional questions.
--- NOTE | 2025-02-28 06:56 | P.HP_ITS ---
H&P: HPI History of Present Illness Date/Time: 02/28/25 06:56 Chief Complaint: Patient is locking catching of his right knee. The knee occasionally is locked. He he has mechanical symptoms and has failed conservative treatment like to consider arthroscopic intervention. Review of Systems Musculoskeletal: Musculoskeletal: Reports arthralgias, Reports joint swelling and Reports stiffness Neurologic: Reports abnormal gait [facility] Past Medical History Medical History Cataract, bilateral Hepatitis C antibody test negative (06/25/17) Diverticulitis Surgical History Surgical History History of bilateral carpal tunnel release 2002 H/O rotator cuff surgery 08-16-2006 History of back surgery 2007,2018, 2020,2023 Family History Family History Grandparent Hypertension Family history of elevated blood lipids Father Carcinoma of colon Sibling Family history of malignant neoplasm of breast in first degree relative Other Family history of malignant neoplasm of breast Social History Social History (Updated 02/14/25 @ 08:22 by Hannah Temple CMA) Smoking packs per day: 1 Smoking cigarettes per day: 20.0 Years smoked: 15 Smoking pack-years: 15.00 Smoking status: Former smoker Tobacco type: cigarettes Smoking end date: 05/18/85 Alcohol intake: current Drinks per week: 2 Substance use: never Substance use type: does not use Current Housing: Decline to Answer Concerned About Future Housing: Decline to Answer Difficulty Paying Gas/Electric Bills: Decline to Answer Difficulty Paying for Meds: Decline to Answer Currently Unemployed: Decline to Answer Education: Decline to Answer Difficulty w/ Childcare or Family Care: Decline to Answer Living arrangements: other Additional living arrangements comments: with sp Occupation/Education: retired Gender identity (if verbalized by the patient): Male Spiritual care concerns: No Agree to blood products: Yes Meds Home Medications and Allergies Home Medications ?Medication ?Instructions ?Recorded ?Confirmed ?Type vitamins A,C,B-loqj-bzgoxk 4,296 1 cap PO BID 02/03/22 02/16/25 History mcg-226 mg-90 mg capsule (PreserVision AREDS) gabapentin 300 mg capsule 600 mg PO TID PRN pain 03/2502/22/25 History tramadol 50 mg tablet 50 mg PO Q4-6H PRN pain #30 tabs 04/22/24 02/16/25 Rx diclofenac sodium 75 mg See Rx Instructions .Route 0 01/03/25 02/16/25 Rx tablet,delayed release .COMPLEX #180 tabs rosuvastatin 10 mg tablet 10 mg PO DAILY #90 tabs 02/15 Rx Allergies Allergy/AdvReac Type Severity Reaction Status Date / Time No Known Allergies Allergy Verified 02/22/25 12:12 Exam 2 Narrative: On exam he has mechanical locking and catching with any manipulation. Neurologically he is intact. The knee occasionally is locked. Neurologically he is intact. Eyes: General: appearance normal, both eyes and all related structures Neck: Neck: supple Resp: Effort & Inspection: normal respiratory effort Cardio: Rate: regular rate Rhythm: regular rhythm Knee X-Ray 01/02/25 Lumbar Spine X-Ray 10/01/19 Assessment and Plan Assessment and plan (1) Acute medial meniscus tear of right knee: Code(s): S83.241A - Other tear of medial meniscus, current injury, right knee, initial encounter Status: Acute Assessment and Plan: Patient has mechanical catching and locking. His knee is locked. He has a flap tear of the the clearly is the getting stuck in the joint. He knows that he has some underlying arthritis in this will be made better by arthroscopy. He would like to proceed with arthroscopic intervention of the right knee. Will proceed with arthroscopy right knee partial meniscectomy proceed as indicated. I have discussed this with him he agrees and understands discussed the risks, benefits, limitations, and alternatives in detail.
[2025-03-01] VITALS (9 sets, daily range): BP systolic 127–157; BP diastolic 70–86; PULSE 75–85; RESP 10–16; TEMP 36.2–36.3; O2SAT 97–100
--- OUTSIDE RECORDS SUMMARY | 2025-03-01 03:14 | XMS_ITS | Encounter Summary ---
Author Organization [facility] Healthcare Address [address] [place] [address] Care Team Providers Care Director Employee Safety And Health Name Role Phone Amrita Lisa DO Primary Care Provider [phone] Marco Martinez INSTRUCTOR APPAREL MANUFACTURE Unavailable [phone] Reason for Visit * Reason Onset Date Comments Scheduling Appointments 10/04/2021 Encounter Details Date Type Department Care Team (Late st Contact Info) Description 10/04/2021 Telephone [facility] [address] 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
--- OUTSIDE RECORDS SUMMARY | 2025-03-01 03:14 | XMS_ITS | Clinical Summary ---
Author Organization [facility] Address [address] [place] [address] Care Team Providers Care Coiled Tubing Supervisor Name Role Phone Cholo De Souza MD Primary Care Provider [phone] Source Comments [facility],non-owned Affiliates and Associated Physician Practices is amultiple site organization consisting of ambulatory clinics and hospital sitesin [place], [place], [place] and [place]. This disclosure is being madepursuant to the Care Everywhere program and may not contain all information available regarding this patient. Last updated 18.[facility] Allergies No known active allergies Medications * [...] on file Legal Sex Male 6:57 AM SKIN SPECIALIST Gender Identity Not on file Sexual Orientation [...] patient's age to complete this topic Insurance [facility] [place] [address] [employer] Care Teams Coiled Tubing Supervisor Relationship Specialty Start Date End Date Cholo De Souza MD [address] [place] [id number] PCP - General Family Medicine 11/07/13
--- OUTSIDE RECORDS SUMMARY | 2025-03-01 03:14 | XMS_ITS | Clinical Summary ---
Author Organization [facility] Address [address] [place] [address] Care Team Providers Care Unit Reactor Operator Name Role Phone Amrita Lisa Primary Care Provider [phone] Marco Martinez RISK CONTROL CONSULTANT Unavailable [phone] Allergies No known active allergies Medications rosuvastatin (CRESTOR) 10 mg tabletIndicatio ns:hyperlipidem ia Take 1 tablet (10 mg total) by mouth every morning 1 Active multivitamin tabletIndicatio ns:Vitamin Deficiency Prevention Take 1 tablet by mouth shroud line tier before breakfast Active traMADoL (ULTRAM) 50 mg [...] (06/21/2018): Added automatically from request for surgery [id number] Lumbago 03/23/2018 Displacement of lumbar intervertebral disc 03/23 Lumbar spondylosis 12/09/2017 Osseous and subluxation sten osis of intervertebral foramina of lumbar region 12/09/2017 Lumbar radiculopathy 12/09/2017 Lumbar post-laminectomy syndrome 12/09/2017 Encounters Date Type Department Care Team Description 02/04/2025 11:08 AM CDT - 02/04/2025 11:59 PM CDT Hospital Encounter [facility] MRI [address] [place] [address] Other tear of medial meniscus, current injury, right knee, initial encounter Discharge Disposition: Discharge to home or self care 01/03/2025 12:00 PM CDT Telemedicine [facility] Medicine Neurosurgery [address] [facility] 6[address] [place] [address] [place] [address] Joanne Jimenes NP Lumbar radiculopathy (Primary Dx); Cervical radiculopathy; Lumbar stenosis without neurogenic claudication; S/P lumbar fusion 01/02/2025 1:20 PM CDT - 01/02/2025 11:59 PM CDT Hospital Encounter [facility] Imaging [address] [place] [address] Lumbar radiculopathy; Cervical radiculopathy; Lumbar stenosis without neurogenic claudication; S/P lumbar fusion; Spondylolysis of cervical region Discharge Disposition: Discharge to home or self care from Last 3 Months Immunizations Immunization Administration Dates Next Due COVID-19 mRNA (XL Hybrids) 0.3 m L (30 mcg) vaccine (12 [...] on file 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 Author CCM Chronic Pain Care Plan Chronic Care Management Worsening( 7:29 AM CDT) Ligia Beebe RN Note: Problem: Chronic Pain Goals: 1. Minimize further functional decline 2. Maximize quality of life 3. Control pain Strategies: - Activity/exercise program recommendation - Conservative stepwise pain medicine strategy with multi-disciplinary approach - Recommend healthy lifestyle strategies and compensatory methods as needed Medical Devices Implanted Type Area Garbage Collector Driver Device Identifier Shelf Expiration Date Model / Serial / Lot Globus Medical [id number] Rise-L [id number] 3d Lordotic Spacer Spinal Nonsterile - [id number] Implanted:Qty : 1 on 03/12/2021 by Gus Gaines MD at [facility] Cage N/A: Spine Lumbar [employer] 193.606 / / Medtronic Sofamor Dane[place] [id number] Infuse 14mm 23mm Absorbable Sponge Sterile Water Syringe Needle - S0 - [id number] Implanted:Qty : 1 on 03/12/2021 by Gus Gaines MD at [facility] Other - see comments N/A: Spine Lumbar Medtronic Inc 12/15/2022 [id number] / 0 / [id number] Globus Medical 1134.001 Creo Spinal Cap Locking Nonsterile Mis - [id number] Implanted:Qty : 2 on 03/12/2021 by Gus Gaines MD at [facility] Screw N/A: Spine Lumbar [employer] 1134.0010 / / Gl[employer] Medical 1134.01 Creo Mis 30mm Modular Polyaxial Tulip Head Screw Bone - [id number] Implanted:Qty : 3 on 03/12/2021 by Gus Gaines MD at [facility] Screw N/A: Spine Lumbar [employer] 1134.0100 / / Gl[employer] 1067.4650 Creo 6.5mm 50mm Cannulated Modular Spine Screw Bone - [id number] Implanted:Qty : 2 on 03/12/2021 by Gus Gaines MD at [facility] Screw N/A: Spine Lumbar [employer] 1067.4650 / / [employer] 1067.4750 Creo 7.5mm 50mm Cannulated Modular Spine Screw Bone - [id number] Implanted:Qty : 1 on 03/12/2021 by Gus Gaines MD at [facility] Screw N/A: Spine Lumbar [employer] 1067.4750 / / [employer] 1134.7045 Creo Mis 5.5mm 45mm Curve Mg Spinal Titanium - [id number] Implanted:Qty : 1 on 03/12/2021 by Gus Gaines MD at [facility] Screw N/A: Spine Lumbar [employer] 1134.7045 / / Filler Bone Void Acupac Advanced Frozen 10 - [id number] - [id number] Implanted:Qty : 1 on 08/17/2018 by Gus Gaines MD at [facility] N/A: Spine Lumbar [employer] Inc 04/13/2023 [id number] / [id number] / [employer] 1067.4650 Creo 6.5mm 50mm Cannulated Modular Spine Screw Bone - [id number] Implanted:Qty : 4 on 08/17/2018 by Gus Gaines MD at [facility] N/A: Spine Lumbar [employer] 1067.4650 / / [employer] 685.007 Tc 1.6mm 500mm Blunt Wire Fixation Nitinol - [id number] Implanted:Qty : 4 on 08/17/2018 by Gus Gaines MD at [facility] N/A: Spine Lumbar [employer] 685.007 / / [employer] 1134.01 Creo Mis 30mm Modular Polyaxial Tulip Head Screw Bone - [id number] Implanted:Qty : 4 on 08/17/2018 by Gus Gaines MD at [facility] N/A: Spine Lumbar [employer] 1134.01 / / [employer] 1134.001 Creo Spinal Cap Locking Nonsterile Mis - [id number] Implanted:Qty : 4 on 08/17/2018 by Gus Gaines MD at [facility] N/A: Spine Lumbar [employer] 1134.001 / / [facility] 1134.7045 Creo Mis 5.5mm 45mm Curve Mg Spinal Titanium - [id number] Implanted:Qty : 1 on 08/17/2018 by Gus Gaines MD at [facility] N/A: Spine Lumbar [employer] 1134.7045 / / [employer] [id number] Creo Mis 5.5mm 50mm Curve Mg Spinal Titanium - [id number] Implanted:Qty : 1 on 08/17/2018 by Gus Gaines MD at [facility] N/A: Spine Lumbar [facility] [id number] / / [employer] 1124.1233 Altera [id number] 15d Spacer Spinal - [id number] Implanted:Qty : 1 on 08/17/2018 by Gus Gaines MD at [facility] N/A: Spine Lumbar [facility] Medical 1124.1233 / / Allosource Canpac Nonpurge Frozen Graft 25cc Bone [id number] - [id number] Implanted:Qty : 1 on 10/20/2023 by Gus Gaines MD at [facility] N/A: Spine Lumbar [employer]ource 08/27/2028 [id number] / / [id number] Glob Medical 1134.01 Creo Mis 30mm Modular Polyaxial Tulip Head Screw Bone - [id number] Implanted:Qty : 8 on 10/20/2023 by Gus Gaines MD at [facility] N/A: Spine Lumbar [employer] 1134.0100 / / [employer] 1134.001 Creo Spinal Cap Locking Nonsterile Mis - [id number] Implanted:Qty : 8 on 10/20/2023 by Gus Gaines MD at [facility] N/A: Spine Lumbar [employer] 1134.0010 / / [employer] Creo 6.5mm 50mm Cannulated Modular Spine Screw Bone 1067.4650 - [id number] Implanted:Qty : 2 on 10/20/2023 by Gus Gaines MD at [facility] N/A: Spine Lumbar [employer] 1067.4650 / / [employer] 1134.711 Creo Mis 5.5mm 110mm Curve Mg Spinal Titanium - [id number] Implanted:Qty : 1 on 10/20/2023 by Gus Gaines MD at [facility] N/A: Spine Lumbar [employer] 1134.7110 / / [employer] 1134.71 Creo Mis 5.5mm 100mm Curve Mg Spinal Titanium - [id number] Implanted:Qty : 1 on 10/20/2023 by Gus Gaines MD at [facility] N/A: Spine Lumbar [employer] 1134.7100 / / Bioventus Osteoamp Select Fiber 5cc Oasf-05 - [id number] - [id number] Implanted:Qty : 1 on 10/20/2023 by Gus Gaines MD at [facility] N/A: Spine Lumbar BIOVENTUS 07/14/2028 OASF-05 / [id number] / Explanted Type Area Garbage Collector Driver Device Identifier Shelf Expiration Date Model / Serial / Lot Globus Medical 6133.0399s Tc Thread Blunt Tip Wire Fixation - [id number] Explanted:Qty: 1 on 03/12/2021 by Gus Gaines MD at [facility] Wire N/A: Spine Lumbar [employer] 6133.0399S / / Procedures Procedure Name Priority [...] S/P lumbar fusion Spondylolysis of cervical region from Last 3 Months Results * MRI [...] Pino Modi M.D. MF: BRET Report ID: [id number] Reading Location: [id number] Procedure Note Pino Modi MD - 02/05/2025 [...] Pino Modi M.D. MF: BRET Report ID: [id number] Reading Location: [id number] Jeffery Gregory MD IM MRI PROCEDURES Final Re sult * MRI [...] disc is normal in configuration. There is esng-ea-ojxpprqv bilateral facet arthropathy. There is mild bilateral neuroforaminal stenosis. There is no spinal canal stenosis. L2-L3: Prior discectomy. There is severe bilateral facet arthropathy. There is moderate to severe bilateral neuroforaminal stenosis. There is no spinal canal stenosis. Ligamentous thickening. L3-L4: Disc bulge. There is severe bilateral facet arthropathy. There is rdys-mg-wamcxhxz bilateral neuroforaminal stenosis. There is no spinal [...] disc is normal in configuration. There is zzbl-zt-lobxjlhj bilateral facet arthropathy. There is mild bilateral neuroforaminal stenosis. There is no spinal canal stenosis. L2-L3: Prior discectomy. There is severe bilateral facet arthropathy. There is moderate to severe bilateral neuroforaminal stenosis. There is no spinal canal stenosis. Ligamentous thickening. L3-L4: Disc bulge. There is severe bilateral facet arthropathy. There is nqod-bw-lisshkoe bilateral neuroforaminal stenosis. There is no spinal [...] by: Ifeanyi Suh M.D, PHD Joanne Jimenes ELECTRICAL MACHINE BUILDER IMG MRI PROCEDURES Final R esult from Last 3 Months Insurance [facility] MEDICARE ADVANTAGE [facility] MEDIC[facility] Address: [address] [address] [place] [address] AET MEDICARE T MEDICARE T MEDICARE Advance Directives For more information, please contact: [phone] * Full Code (Latest Code Status on File) Date Activated Date Inactivated Comments 10/20/2023 11:45 AM 10/23/2023 2:19 PM * Full Code Date Activated Date Inactivated Comments 03/12/2021 3:16 PM 03/13/2021 5:29 PM * Full Code Date Activated Date Inactivated Comments 08/17/2018 4:02 PM 08/18/2018 1:29 PM Care Teams Unit Reactor Operator Relationship Specialty Start Date End Date Amrita Lisa DO PCP - General Family Medicine 11/28/20 Marco Martinez, RISK CONTROL CONSULTANT [address] [address] [employer] Physical Therapy 01/16/21
[2025-03-01] MEDS: LACTATED RINGERS 1,000 ML 30 ML IV CONT (06:30)
--- NOTE | 2025-03-01 06:38 | WPDHPUPDATE1 ---
History and Physical Update Update Date/Time: 03/01/25 06:38 History and Physical has been reviewed, including an updated exam of the patient. There are NO changes in the patient's condition. Risks, benefits, and alternatives have been discussed and questions answered. Patient agrees to proceed with procedure.
[2025-03-01] MEDS: KETOROLAC 15 MG/ML VIAL (*BKC) IV PUSH (07:00)
[2025-03-01] MEDS: ACETAMINOPHEN 500 MG TABLET 1000 MG PO (07:00)
--- NOTE | 2025-03-01 07:23 | WPDANESEPPF ---
Anes - Initial Pre Proc Eval Procedure: Operation Date: 03/01/25 07:30 Proposed Procedures p Right Knee Arthroscopy Partial Meniscectomy, Proceed as Indicated - Jeffery Gregory MD Date/Time: 03/01/25 07:23 Surgeon: Jeffery Gregory MD Pre Op Diagnosis: Right Medial Meniscus Tear Patient Data Age: 74 Gender: M Height: 1.68 m Weight: 77 kg Allergies Allergy/AdvReac Type Severity Reaction Status Date / Time No Known Allergies Allergy Verified 02/22/25 12:12 Home Medications ?Medication ?Instructions ?Recorded ?Confirmed ?Type vitamins A,C,E-meqp-zfyoqn 4,296 1 cap PO BID 02/03/22 02/16/25 History mcg-226 mg-90 mg capsule (PreserVision AREDS) gabapentin 300 mg capsule 600 mg PO TID PRN pain 03/25/23 02/22/25 History tramadol 50 mg tablet 50 mg PO Q4-6H PRN pain #30 tabs 04/22/24 02/16/25 Rx diclofenac sodium 75 mg See Rx Instructions .Route 01/03/25 02/16/25 Rx tablet,delayed release .COMPLEX #180 tabs rosuvastatin 10 mg tablet 10 mg PO DAILY #90 tabs 02/24/25 Rx Patient hx anesthesia problems: none Family hx anesthesia problems: none Results Review: All pre-operative results and documents have been reviewed as part of the pre-operative evaluation. [facility] Past Medical History Medical History Cataract, bilateral Hepatitis C antibody test negative (06/25/17) Diverticulitis Surgical History Surgical History History of bilateral carpal tunnel release 2002 H/O rotator cuff surgery 08-16-2006 History of back surgery 2007,2018, 2020,2023 Family History Family History Grandparent Hypertension Family history of elevated blood lipids Father Carcinoma of colon Sibling Family history of malignant neoplasm of breast in first degree relative Other Family history of malignant neoplasm of breast Social History Social History (Updated 02/14/25 @ 08:22 by Hannah Temple CMA) Smoking packs per day: 1 Smoking cigarettes per day: 20.0 Years smoked: 15 Smoking pack-years: 15.00 Smoking status: Former smoker Tobacco type: cigarettes Smoking end date: 05/18/85 Alcohol intake: current Drinks per week: 2 Substance use: never Substance use type: does not use Current Housing: Decline to Answer Concerned About Future Housing: Decline to Answer Difficulty Paying Gas/Electric Bills: Decline to Answer Difficulty Paying for Meds: Decline to Answer Currently Unemployed: Decline to Answer Education: Decline to Answer Difficulty w/ Childcare or Family Care: Decline to Answer Living arrangements: other Additional living arrangements comments: with sp Occupation/Education: retired Gender identity (if verbalized by the patient): Male Spiritual care concerns: No Agree to blood products: Yes Anes - Eval Final PreProcedure Day of Procedure 03/01/25 07:23 Patient weight: normal Heart: regular rate and rhythm Lungs: clear to auscultation Airway: Mallampati scale class II Neurological: alert and oriented Last oral intake: >/= 8 hours ASA classification: III Emergent: no Anesthetic plan: proceed Anesthesia type and monitoring: general LMA and standard monitoring Results Review: All pre-operative results and documents have been reviewed as part of the pre-operative evaluation. Informed Consent: The patient's anesthetic plan and its attendant risks and benefits were discussed with the patient/family/POA. Questions were solicited and answers provided to the satisfaction of the patient/family/POA.
[2025-03-01] MEDS: ceFAZolin 2 GM in SODIUM CHLORIDE 0.9% IV 50 ML 100 ML IVPB (07:28)
--- NOTE | 2025-03-01 08:11 | P.OP_ITS ---
Procedure Note - Detailed Date of Procedure 03/01/25 Pre-op Diagnosis Right Medial Meniscus Tear Post-op Diagnosis Same Procedure Performed RIGHT knee arthroscopy with partial meniscectomy Surgeon Jeffery Gregory MD Anesthesia General Indications Pain, Locking and Catching Description of Procedure Patient brought to operating room # 10. An anesthetic was administered. The knee was sterilely prepped and draped in the usual manner. Standard portals we re used. Superior medial portal was used for the outflow cannula, inferior lateral portal was used for the scope, inferior medial portal was used for the instruments. Arthroscopy was performed, the patellar femoral joint degenerative changes. The medial compartment showed a complex tear. Grade 3 and 4 changes were noted. The lateral compartment showed fraying. The ACL was intact. Using baskets and wayne the meniscal tear was trimmed back to a stable base so the nothing further could be pulled into the joint. Any loose or delaminated fragments were gently trimmed to a stable base. At this point the instruments were withdrawn, sutures placed and patient left the operating room in satisfactory condition. Estimated Blood Loss 20 Drains No Packing No Pathology None sent Complications No immediate complications Condition Stable Disposition PACU [facility] Billing Surgery - Charge Forward: Surgery Billing (07017 MMT)
[2025-03-01] MEDS: LIDO 1%/EPINEPHRINE 1:100,000 50 ML VIAL (08:13)
== END 2025-03-01 10:04 | disposition home or self-care (01) ==
PROVIDERS: PCP Family Medicine; Visit Provider Orthopaedic Surgery
PROC: (CPT 29870; principal; 2025-03-01 07:30)
DX: S83.231A Complex tear of medial meniscus, current injury, right knee, initial encounter (principal); X58.XXXA Exposure to other specified factors, initial encounter; Z79.891 Long term (current) use of opiate analgesic; Z98.890 Other specified postprocedural states; Z98.1 Arthrodesis status; Z87.891 Personal history of nicotine dependence; Z87.19 Personal history of other diseases of the digestive system; Z80.0 Family history of malignant neoplasm of digestive organs; Z80.3 Family history of malignant neoplasm of breast
CPT/HCPCS: 29881; J0690; A9270; J1885; J2003; J2004; J2405; J2704; J7120